=== PATIENT | male | born 1980 | race Caucasian/White ===

== ENCOUNTER → 2020-12-27 14:00 | Outpatient (BNVA) | payer OTHER, SELFPAY | PROVIDERS: PCP Internal Medicine Sports Medicine; Visit Provider Internal Medicine Cardiovascular Disease | DX: I42.7 Cardiomyopathy due to drug and external agent (principal); F14.11 Cocaine abuse, in remission; I10 Essential (primary) hypertension; Z79.899 Other long term (current) drug therapy | CPT/HCPCS: 93005; 99212 ==

== ENCOUNTER → 2021-02-12 14:00 | Outpatient (REF) | payer OTHER, SELFPAY ==
--- NOTE | 2021-02-12 14:02 | CA_ITS ---
Transthoracic Echocardiogram Patient (Last, First, Middle): João Walker A Gender: Male Date of : 1980 Age: 40 Procedure Date: 02/12/2021 Procedure Type: Transthoracic Echocardiogram Location: OP Height: 180.34 cm Weight: 115.67 kg BSA: 2.34 m2 Heart Rate: bpm BP: 142 / 79 mmHg Cable Repairer: SUGAR Referring MD: Lan Webb MD Symptoms: I42.8 - Other cardiomyopathies Study Quality: Good ECG Rhythm: Sinus Conclusions: - The left ventricular systolic function is moderately decreased. The visually estimated ejection fraction is between 30-35%. - No obvious valvular pathology seen on this study. - There is mild dilatation of the ascending aorta measuring 3.80 cm. Findings Left Ventricle Normal left ventricular cavity size. There is mildly increased left ventricular wall thickness. The left ventricular systolic function is moderately decreased. The visually estimated ejection fraction is between 30 35%. There is moderate global hypokinesis. Evidence suggests grade I (mild) diastolic dysfunction. Right Ventricle Normal right ventricular cavity size and systolic function. Atria Both atria are normal in size. Aortic Valve There is a normal trileaflet aortic valve. There is no aortic valve stenosis. There is no aortic valve regurgitation. Mitral Valve The mitral valve appears normal. There is trace mitral valve regurgitation. There is no mitral valve stenosis. Pulmonic Valve The pulmonic valve was not well visualized. Tricuspid Valve Normal tricuspid valve structure. There is trace tricuspid valve regurgitation. The pulmonary artery systolic pressure is normal. Great Vessels The aortic arch is normal in size. There is mild dilatation of the ascending aorta measuring 3.80 cm. Venous The inferior vena cava is normal in size and collapses greater than 50% with inspiration. Pericardium/Pleural There is no evidence of pericardial effusion. Prior Study Comparison No significant change compared to prior study dated: 07/13/2019. Recommendations, Care & Conclusions No obvious valvular pathology seen on this study. Measurements M-Mode Liner Measurements Normals - Women/Men AOV Cusps: 2.40 1.5-2.6 cm/m2 2D Linear Measurements IVSd: 1.29 0.6-0.9/0.6-1.0 cm LVIDd: 4.66 3.9-5.3/4.2-5.9 cm LVIDd Index: 1.99 2.4-3.2/2.2-3.1 cm/m2 LVIDs: 3.73 2.0-3.6 cm LVPWd: 1.26 0.7-1.1 cm Ao Root: 4.20 2.1-3.5 cm LA Diam: 4.00 2.7-3.8/3.0-4.0 cm LAIDs Index: 1.71 1.5-2.3 cm/m2 LV Mass: 284.56 67-162/88-224 g LV Mass Index: 121.60 43-95/49-115 g/m2 LVOT Diam: 2.80 3.0+(-)1.3 cm 2D Systolic Function EF 4C: 43.60 >55% EF 2C: 35.90 >55% Mitral Valve MV Pk E: 0.54 MV PK A: 0.97 MV Decel Time: 199.00 E/A: 0.60 E'Lateral: 8.49 E'Medial: 8.59 E/E' Med: 6.33 E/E' Lat: 6.41 PHT: 59.00 MVA PHT: 3.73 Decel [place]: 2.74 Aortic Valve AoV Pk Ancelmo: 1.33 AoV Pk Grad: 7.00 LVOT LVOT Pk Ancelmo: 0.83 LVOT Mn Ancelmo: 0.53 LVOT VTI: 0.14 LVOT Pk Grad: 3.00 LVOT Mn Grad: 1.00 LVOT Diam: 2.80 LVOT Area: 6.16 Diastolic Function MV Pk E: 0.54 MV Pk A: 0.97 E/A: 0.60 E'Medial: 8.59 E/E' Med: 6.33 E' Laterial: 8.49 E/E' Lat: 6.41 Tricuspid Valve RA Press: 3.00 Great Vessels Aorta Ao Root-2D: 4.20 2.0-3.7 cm Ao Asc: 3.80 2.1-3.4 cm Ao Arch: 2.70 Pulmonary Valve PV Pk Ancelmo: 0.98 Peak PV Grad: 4.00 Updated in Other Vendor System with Status of Final Reed Shay MD electronically signed on 02/13/2021 11:59:45 AM with status of Final
== END ==
LOC: HO.CARD 14:00
PROVIDERS: Visit Provider Internal Medicine Cardiovascular Disease
DX: I42.8 Other cardiomyopathies (principal)
CPT/HCPCS: 93306

== ENCOUNTER → 2021-05-02 12:50 | Outpatient (BNVA) | payer OTHER, SELFPAY | PROVIDERS: PCP Internal Medicine Sports Medicine; Visit Provider Internal Medicine Cardiovascular Disease | DX: I42.8 Other cardiomyopathies (principal); I10 Essential (primary) hypertension; Z79.899 Other long term (current) drug therapy | CPT/HCPCS: 99212 ==

== ENCOUNTER → 2021-09-05 12:40 | Outpatient (BNVA) | payer OTHER, SELFPAY | PROVIDERS: PCP Internal Medicine Sports Medicine; Referring Provider Internal Medicine; Visit Provider Internal Medicine Cardiovascular Disease | DX: I42.8 Other cardiomyopathies (principal); I10 Essential (primary) hypertension | CPT/HCPCS: 99212 ==

== ENCOUNTER 2021-09-18 12:33 | Inpatient (IN) | payer OTHER, SELFPAY ==
[2021-09-18] VITALS (12 sets, daily range): BP systolic 103–138; BP diastolic 50–91; PULSE 75–126; RESP 15–20; TEMP 36.7–37.1; O2SAT 96–98; BMI 34.2
--- NOTE | 2021-09-18 | ECG_ITS ---
Test Reason : CHEST PAIN Blood Pressure : / mmHG Vent. Rate : 110 BPM Atrial Rate : 000 BPM P-R Int : 000 ms QRS Dur : 102 ms QT Int : 262 ms P-R-T Axes : 000 -13 099 degrees QTc Int : 354 ms Atrial fibrillation with rapid ventricular response Nonspecific T wave abnormality Abnormal ECG Atrial fibrillation has replaced Sinus tachycardia Referred By: Generic ED Physician Electronically Signed By:JEANNIE ANDRADE MD
--- NOTE | ~2021-09-18 | XR_ITS ---
EXAMINATION: XR CHEST CLINICAL INFORMATION: Chest pain COMPARISON: Previous chest x-ray most recent February 2019 TECHNIQUE: Frontal view of the chest was obtained. FINDINGS: The cardiac and mediastinal contours are stable. The lungs are clear. There is no pleural effusion or pneumothorax. Bony structures are unremarkable. XR/XR chest 1V IMPRESSION: No evidence for acute disease in the chest.
--- NOTE | ~2021-09-18 | CT_ITS ---
EXAMINATION: CT HEAD WITHOUT CONTRAST CLINICAL INFORMATION: Left-sided weakness. COMPARISON: None TECHNIQUE: Contiguous axial imaging was performed from the skull base to vertex without intravenous administration of contrast. This CT examination was performed using dose optimization techniques as appropriate, variously including the following: *Automated exposure control *Adjustment of mA and/or kV according to patient size (this includes techniques or standardized protocols for targeted exams where dose is matched to indication/reason for exam; i.e. extremities or head) *Use of iterative reconstruction technique DLP: 876 mGy-cm FINDINGS: There is no evidence of acute intracranial hemorrhage or territorial infarction. No abnormal mass effect or midline shift is seen. [place] to white matter differentiation is well preserved. No extra-axial fluid collections are identified. The ventricles are normal in size. There is no abnormal attenuation within the brain parenchyma. The osseous structures and soft tissues are normal. The mastoid air cells and visualized portions of the paranasal sinuses are well aerated. CT/CT head/brain wo con IMPRESSION: No acute intracranial pathology.
[2021-09-18 13:15] LABS: MANUAL DIFF FLAG NO
[2021-09-18 13:20] LABS: Basophils Absolute Auto 0.1 X10*3/uL (0.0-0.2); Basophils Percent Auto 0.3 % (0-2); Eosinophils Absolute Auto 0.6 X10*3/uL (0.0-0.4); Eosinophils Percent Auto 3.7 % (0-4); Hematocrit 52.5 % (42-52); Imm Gran Abs Auto 0.08 X10*3/uL (0.00-0.03); Imm Gran Pct Auto 0.5 % (0.0-0.4); Lymphocytes Absolute Auto 1.6 X10*3/uL (1.2-4.9); Lymphocytes Percent Auto 9.3 % (20-40); Mean Corpuscular HGB Conc 34.3 g/dl (31.0-36.0); Mean Corpuscular Hemoglobin 29.3 pg (27.0-33.0); Mean Corpuscular Volume 85.4 fL (80-98); Mean Platelet Volume 9.2 fL (9.4-12.4); Monocytes Absolute Auto 1.2 X10*3/uL (0.1-1.2); Neutrophils Absolute Auto 13.6 X10*3/uL (2.0-8.3); Neutrophils Percent Auto 79.2 % (45-73); Platelet Count 380 X10*3/uL (160-400); Red Blood Count 6.15 X10*6/uL (4.60-5.80); Red Cell Distribution Width 14.7 % (11.0-16.0); White Blood Count 17.2 X10*3/uL (4.8-10.8)
--- NOTE | 2021-09-18 13:25 | PC.NURSE ---
pt alert and oriented, skin appropriate for ethnicity, respirations even and unlabored, pt reports last night waking up to use the bathroom and felt sob and weird tightness in his throat, felt his heart beating in his throat according to the pt, a-fib on the monitor no hx of a-fib but has hx of chf hr ranges from 109-140, denies chest pain/sob at this time
[2021-09-18 13:29] LABS: Anion Gap 11 (12-20); Blood Urea Nitrogen 11 mg/dL (9-16); Calcium 8.8 mg/dL (8.4-10.2); Carbon Dioxide 23 mmol/L (22-29); Chloride 107 mmol/L (96-108); Creatinine Clr Calc Pharmacy 124.4; Estimated Glomerular Filt Rate > 60; Glucose Random 155 mg/dL (60-115); Potassium 4.4 mmol/L (3.3-5.1); Sodium 137 mmol/L (135-145)
[2021-09-18 13:35] LABS: Troponin-I High Sensitivity 13.2 ng/L (<3.5-35.0)
--- NOTE | 2021-09-18 13:42 | ED_ITS ---
HPI - Chest Pain General Chief Complaint: Chest Pain Stated Complaint: Chest pressure Time Seen by Provider: 09/18/21 13:22 Source: patient Mode of arrival: ambulatory Limitations: no limitations History of Present Illness HPI narrative: 41-year-old male past medical history significant for nonischemic cardiomyopathy, hypertension, hyperlipidemia, CHF (w/ reduced EF) diabetes presents to the emergency department with complaints of shortness of breath, palpitations, and chest pain which has been intermittent since 3:00 a.m. he states the palpitations, and chest pain have improved since then, but the shortness of breath has remained constant. Patient also mentions that last week get an episode of left-sided weakness, numbness and tingling to his left upper extremity, left lower extremity. He states on this happened he dropped an object that he was holding in his left hand. He also states that he was unable to recognize people around him, and cell very altered and confused. Upon further questioning patient admits to frequent cocaine use, and states that he is frequently per felt palpitations when he uses cocaine. He also mentions that he uses testosterone, for body building, his last testosterone shot was yesterday. He denies fevers, chills, nausea, vomiting, abdominal pain, weakness. Related Data Home Medications Medication Instructions Recorded Confirmed amlodipine 10 mg tablet 10 mg PO DAILY 12/27/20 09/18/21 atorvastatin 20 mg tablet 20 mg PO DAILY 12/27/20 09/18/21 ibuprofen 800 mg tablet 800 mg PO Q8H PRN 12/27/20 09/18/21 insulin glargine 100 unit/mL (3 10 unit SUBCUT QPM 12/27/20 09/18/21 mL) subcutaneous pen (Lantus Solostar U-100 Insulin) metformin 500 mg tablet 1,000 mg PO DAILY tab 12/27/20 09/18/21 metoprolol succinate 25 mg 25 mg PO DAILY 12/27/20 09/18/21 tablet,extended release 24 hr dulaglutide 3 mg/0.5 mL 3 mg SUBCUT QWEEK 09/05/21 09/18/21 subcutaneous pen injector (Trulicity) Previous Rx's Medication Instructions Recorded sacubitril 24 mg-valsartan 26 mg 1 tab PO BID #60 tab 09/11/21 tablet (Entresto) Allergies Allergy/AdvReac Type Severity Reaction Status Date / Time diphenhydramine Allergy Unknown UNKNOWN Verified 09/18/21 12:46 [From [facility]NADRYL] [facility] Past Medical History Surgical History History of cardiac cath History of hip surgery Family History Family History Mother HIV (human immunodeficiency virus infection) Liver cirrhosis Father H/O heart artery stent Heart disease Social History Social History Alcohol intake: current Alcohol intake frequency: holidays/special occasions only Patient Tobacco Use Status: Never used Tobacco Use of substances other than those prescribed or required for medical reasons: Yes Substance Use Type: Marijuana Substance Use Frequency: Daily Advance Directives: No Advance Directives Information Provided: No Physical Exam Vital Signs: Vital Signs: Last Vital Signs Temp 98.0 F 09/18/21 12:46 Pulse 115 H 09/18/21 14:32 Resp 18 09/18/21 14:32 BP 103/77 09/18/21 14:32 Pulse Ox 96 09/18/21 14:32 Body Mass Index 34.2 Course Reevaluation(s) Reevaluation #1: EKG shows new onset atrial fibrillation with rapid ventricular response. Interventricular rate of 110. White blood cell count is noted to be elevated 17.2, likely secondary to steroid use for body building. Patient denies fevers, chills malaise at home not likely from infection. High sensitivity troponin #[address] an UA is pending at this time. TT to Dr. Webb who patient has seen in the past. Time: 13:51 Reevaluation #2: Spoke to Dr. Webb flu suggest starting the patient on digoxin 250 mcg x 2. He also advised starting anticoagulation either heparin, or Lovenox. He also agrees with the plan to scan the patient's head and brain. This patient will continue to be monitored, and when all tests are back, hospitalist will be reached out to for admission. I have spoken to the patient about the diagnosis, treatment plan, and have educated him on the benefits and potential risks of anticoagulation. Patient is understanding, and has no furth er questions at this time. Patient was educated with his significant other at the bedside, significant other had no other questions either. Time: 14:07 Reevaluation #3: CT of the head/brain shows no acute findings. BNP 40. TSH normal. Second troponin pending. Lovenox common digoxin has been given. Second Trop pending. Will reach out to the hospitalist for admission. MDM - Chest Pain MDM Narrative Medical decision making narrative: 41-year-old male past medical history significant for nonischemic cardiomyopathy, diabetes, hyperlipidemia, CHF, hypertension presents emergency department with complaints of chest pain, s hortness of breath and palpitations since 3:00 a.m. this morning. Palpitations and shortness of breath has been improving since 3:00 a.m., however shortness of breath has been constant since then. He also mentions last week get an episode of left-sided weakness, numbness and tingling, which caused him to drop in objects from his left hand. He admits to cocaine use frequently. Last use last night. He also states he is using IM testosterone, for body building. He is not on blood thinners. Upon physical examination a rapid a regular rhythm is appreciated. There are no focal neuro deficits. Regular strength upper and lower extremities. Lungs are clear to auscultation bilaterally. Abdomen soft nontender nondistended. Plan at this time is to obtain basic labs, troponin, chest x-ray, COVID, TSH, BNP, drug screen, EKG Lab Data Attestation: I reviewed the patient's lab results. Result diagrams: 09/18/21 13:10 09/18/21 13:10 Labs: Lab Results 09/18/21 09/18/21 09/18/21 Range/Units 13:10 13:10 13:10 WBC 17.2 H (4.8-10.8) X10*3/uL RBC 6.15 H (4.60-5.80) X10*6/uL Hgb 18.0 (14.0-18.0) g/dl Hct 52.5 H (42-52) % MCV 85.4 (80-98) fL MCH 29.3 (27.0-33.0) pg MCHC 34.3 (31.0-36.0) g/dl RDW 14.7 (11.0-16.0) % Plt Count 380 (160-400) X10*3/uL MPV 9.2 L (9.4-12.4) fL Immature Gran % (Auto) 0.5 H (0.0-0.4) % Neut % (Auto) 79.2 H (45-73) % Lymph % (Auto) 9.3 L (20-40) % [place] % (Auto) 7.0 (2-11) % Eos % (Auto) 3.7 (0-4) % Baso % (Auto) 0.3 (0-2) % Lymph # (Auto) 1.6 (1.2-4.9) X10*3/uL [place] # (Auto) 1.2 (0.1-1.2) X10*3/uL Eos # (Auto) 0.6 H (0.0-0.4) X10*3/uL Baso # (Auto) 0.1 (0.0-0.2) X10*3/uL Abs Immat Gran (auto) 0.08 H (0.00-0.03) X10*3/uL Absolute Neuts (auto) 13.6 H (2.0-8.3) X10*3/uL Absolute Nucleated RBC 0.000 (0.0-0.012) X10*3/uL Nucleated RBC % (auto) 0.0 (0.0-0.2) /100WBC PT (9.9-13.0) SEC INR (0.9-1.1) APTT (24.1-38.0) SEC Sodium 137 (135-145) mmol/L Potassium 4.4 (3.3-5.1) mmol/L Chloride 107 (96-108) mmol/L Carbon Dioxide 23 (22-29) mmol/L Anion Gap 11 L (12-20) BUN 11 (9-16) mg/dL Creatinine 1.01 (0.5-1.4) mg/dL Estim Creat Clear Calc 124.4 Estimated GFR > 60 Random Glucose 155 H (60-115) mg/dL Calcium 8.8 (8.4-10.2) mg/dL Troponin I High Sens 13.2 (<3.5-35.0) ng/L B-Natriuretic Peptide 40 (<100) pg/mL TSH 0.99 (0.32-4.0) uIU/mL COVID-19 ([facility]) (Negative) COVID-19 Clin Com 09/18/21 09/18/21 Range/Units 14:42 14:42 WBC (4.8-10.8) X10*3/uL RBC (4.60-5.80) X10*6/uL Hgb (14.0-18.0) g/dl Hct (42-52) % MCV (80-98) fL MCH (27.0-33.0) pg MCHC (31.0-36.0) g/dl RDW (11.0-16.0) % Plt Count (160-400) X10*3/uL MPV (9.4-12.4) fL Immature Gran % (Auto) (0.0-0.4) % Neut % (Auto) (45-73) % Lymph % (Auto) (20-40) % [place] % (Auto) (2-11) % Eos % (Auto) (0-4) % Baso % (Auto) (0-2) % Lymph # (Auto) (1.2-4.9) X10*3/uL [place] # (Auto) (0.1-1.2) X10*3/uL Eos # (Auto) (0.0-0.4) X10*3/uL Baso # (Auto) (0.0-0.2) X10*3/uL Abs Immat Gran (auto) (0.00-0.03) X10*3/uL Absolute Neuts (auto) (2.0-8.3) X10*3/uL Absolute Nucleated RBC (0.0-0.012) X10*3/uL Nucleated RBC % (auto) (0.0-0.2) /100WBC PT 13.0 (9.9-13.0) SEC INR 1.1 (0.9-1.1) APTT 35.2 (24.1-38.0) SEC Sodium (135-145) mmol/L Potassium (3.3-5.1) mmol/L Chloride (96-108) mmol/L Carbon Dioxide (22-29) mmol/L Anion Gap (12-20) BUN (9-16) mg/dL Creatinine (0.5-1.4) mg/dL Estim Creat Clear Calc Estimated GFR Random Glucose (60-115) mg/dL Calcium (8.4-10.2) mg/dL Troponin I High Sens (<3.5-35.0) ng/L B-Natriuretic Peptide (<100) pg/mL TSH (0.32-4.0) uIU/mL COVID-19 ([facility]) Negative (Negative) COVID-19 Clin Com See Note Imaging Data CT scan - head: Attestation: I personally reviewed and interpreted this imaging study as follows: Radiologist's impression: FINDINGS: There is no evidence of acute intracranial hemorrhage or territorial infarction. No abnormal mass effect or midline shift is seen. [place] to white matter differentiation is well preserved. No extra-axial fluid collections are identified. The ventricles are normal in size. There is no abnormal attenuation within the brain parenchyma. The osseous structures and soft tissues are normal. The mastoid air cells and visualized portions of the paranasal sinuses are well aerated. ? CT/CT head/brain wo con IMPRESSION: No acute intracranial pathology. ECG Data ECG #1: ECG interpretation date: 09/18/21 ECG interpretation time: 13:54 Prior ECG tracings: available for review Interpretation: Ventricular rate of 110, QRS prolonged to 102, QT/QTC normal. EKG shows atrial fibrillation with rapid ventricular response. No ST elevation, no T-wave inversions no acute ischemia. EKG also shows poor R-wave progression. Acute changes when compared to EKG from January 04, 2021, and December 27, 2020. Discharge Plan Discharge Clinical Impression: Atrial fibrillation, Chest pain, Shortness of breath Patient Disposition: Admitted As Inpatient Prescriptions: No Action Entresto 24-26 mg tablet 1 tab PO BID Qty: 60 RF: 5 Trulicity 3 mg/0.5 mL pen injector 3 mg subcut QWEEK RF: 0 amlodipine 10 mg tablet 10 mg PO DAILY RF: 0 metoprolol succinate 25 mg tablet extended release 24 hr 25 mg PO DAILY RF: 0 ibuprofen 800 mg tablet 800 mg PO Q8H PRN (Reason: pain) RF: 0 atorvastatin 20 mg tablet 20 mg PO DAILY RF: 0 Lantus Solostar U-100 Insulin 100 unit/mL (3 mL) insulin pen 10 unit subcut QPM RF: 0 metformin 500 mg tablet 1,000 mg PO DAILY RF: 0
[2021-09-18 14:04] LABS: B Type Natriuretic Peptide 40 pg/mL (<100)
[2021-09-18 14:19] LABS: TSH reflex Free T4 0.99 uIU/mL (0.32-4.0)
--- NOTE | 2021-09-18 14:20 | PHA.MEDREC ---
Pharmacy Consult ? Medication Reconciliation Pharmacy has completed the medication reconciliation.
[2021-09-18] MEDS: Digoxin 0.5 MG/2 ML AMPUL 0.25 MG IVPUSH ×2 (14:31→18:20)
[2021-09-18 14:53] LABS: INTERNATIONAL NORM RATIO 1.1 (0.9-1.1)
[2021-09-18 14:55] LABS: Partial Thromboplastin Time 35.2 SEC (24.1-38.0)
[2021-09-18 15:05] LABS: COVID-19 Test Negative (Negative)
[2021-09-18] MEDS: Enoxaparin Sodium 120 MG/0.8 ML SYRINGE 110 MG SUBCUT (15:05)
[2021-09-18 15:56] LABS: Amphetamine Screen Urine Not Detected (Not Detect); Barbiturates, Urine Not Detected (Not Detect); Benzodiazepines Screen Urine Not Detected (Not Detect); Cannabinoid Screen Urine POSITIVE (Not Detect); Cocaine Screen Urine POSITIVE (Not Detect); Fentanyl, urine Not Detected (Not Detect); Opiate Screen Urine Not Detected (Not Detect); Phencyclidine Screen Urine Not Detected (Not Detect)
[2021-09-18 16:02] LABS: Troponin-I High Sensitivity 13.9 ng/L (<3.5-35.0)
--- NOTE | 2021-09-18 16:40 | P.HPHOSP_ITS ---
History of Present Illness Date of Service: 09/18/21 <Jessica Hurtado NP - Last Filed: 09/18/21 17:53> Attending physician on admission: Julio Webb <Jessica Hurtado NP - Last Filed: 09/18/21 17:53> Chief Complaint: Shortness of breath <Jessica Hurtado NP - Last Filed: 09/18/21 17:53> 41-year-old male presenting with shortness of breath, palpitations, and chest pain which has been intermittent since 0300 with continued shortness of breath. He uses cocaine frequently and admitted that he gets palpitations with use. He also uses testosterone for body building. He gets palpitations off and on and this has been happening for some time now. He denied chest pain, nausea, vomiting. He was noted to have an elevated white blood cell count of 17.2. Head CT and chest x-ray negative for any acute abnormality. His blood pressure has remained stable. In the ER, he was given therapeutic Lovenox and digoxin. He will be admitted for further management and treatment of acute onset atrial fibrillation with rapid ventricular response <Jessica Hurtado NP - Last Filed: 09/18/21 17:53> Review of Systems Review of Systems: Denies any recent fever chills or decrease in appetite respiratory denies any shortness of breath coverage production cardiovascular denies chest pain gastrointestinal denies any dysphagia abdominal pain nausea vomiting or diarrhea genitourinary denies any dysuria frequency or hematuria musculoskeletal denies any joint pain or swelling neuropsych denies any weakness or seizures all other systems reviewed are negative <Jessica Hurtado NP - Last Filed: 09/18/21 17:53> [facility] Medical History: Medical History Hypertension NICM (nonischemic cardiomyopathy) <Jessica Hurtado NP - Last Filed: 09/18/21 17:53> Family History: Family History Mother HIV (human immunodeficiency virus infection) Liver cirrhosis Father H/O heart artery stent Heart disease <Jessica Hurtado NP - Last Filed: 09/18/21 17:53> Pertinent family history: . <Jessica Hurtado NP - Last Filed: 09/18/21 17:53> Surgical History: Surgical History History of cardiac cath History of hip surgery <Jessica Hurtado NP - Last Filed: 09/18/21 17:53> Social History: Social History Household Members: Spouse and Children Housing: House Do you presently have visiting nurse or other home services: No Alcohol intake: current Alcohol intake frequency: holidays/special occasions only Patient Tobacco Use Status: Never used Tobacco Substance Use Type: Crack/Cocaine and Marijuana service: No Current occupational status: employed <Jessica Hurtado NP - Last Filed: 09/18/21 17:53> Meds Allergies/Adverse reactions: Allergies Allergy/AdvReac Type Severity Reaction Status Date / Time diphenhydramine Allergy Unknown UNKNOWN Verified 09/18/21 12:46 [From BENADRYL] <Jessica Hurtado NP - Last Filed: 09/18/21 17:53> Active Medications: Current Medications Acetaminophen (Acetaminophen 325 Mg Tablet) 650 mg PO Q6H PRN PRN Reason: Pain, Mild (Pain Scale 1-3) Enoxaparin Sodium (Enoxaparin Sodium 120 Mg/0.8 Ml Syringe) 110 mg SUBCUT BID ANN Ondansetron HCl (Ondansetron Hcl 4 Mg/2 Ml Vial) 4 mg IVPUSH Q8H PRN PRN Reason: Nausea and Vomiting Pharmacy Consult (Consult Rx Perform Med Rec) 1 each MISCELLANE ONCE PRN PRN Reason: Consult order Sodium Chloride (0.9 % Sodium Chloride Flush 3 Ml Syringe) 3 ml IVFLUSH QSHIFT ANN <Jessica Hurtado NP - Last Filed: 09/18/21 17:53> Home medications: Home Medications Medication Instructions Recorded Confirmed Last Taken Type amlodipine 10 mg tablet 10 mg PO DAILY 12/27/20 09/18/21 Unknown History atorvastatin 20 mg tablet 20 mg PO DAILY 12/27/20 09/18/21 Unknown History ibuprofen 800 mg tablet 800 mg PO Q8H PRN 12/27/20 09/18/21 Unknown History insulin glargine 100 unit/mL (3 10 unit SUBCUT QPM 12/27/20 09/18/21 Unknown History mL) subcutaneous pen (Lantus Solostar U-100 Insulin) metformin 500 mg tablet 1,000 mg PO DAILY tab 12/27/20 09/18/21 Unknown History metoprolol succinate 25 mg 25 mg PO DAILY 12/27/20 09/18/21 Unknown History tablet,extended release 24 hr dulaglutide 3 mg/0.5 mL 3 mg SUBCUT QWEEK 09/05/21 09/18/21 Unknown History subcutaneous pen injector (Trulicity) <Jessica Hurtado NP - Last Filed: 09/18/21 17:53> Physical Exam Vital Signs and Narrative: Vital Signs: Last Vital Signs Temp 98.0 F 09/18/21 12:46 Pulse 126 H 09/18/21 16:01 Resp 20 09/18/21 16:01 BP 106/77 09/18/21 16:01 Pulse Ox 96 09/18/21 14:32 Body Mass Index 34.2 <Jessica Hurtado NP - Last Filed: 09/18/21 17:53> Appearing in no acute distress head is normocephalic atraumatic eyes pupils are PERRLA sclera is anicteric mouth throat mucous membranes are intact and moist neck is supple no lymphadenopathy, no JVD noted lung sounds are clear to auscultation heart regular rate rhythm, clear S1, S2 positive bowel sounds, abdomen is soft, nontender neuro patient is alert x3, no focal deficits <Jessica Hurtado NP - Last Filed: 09/18/21 17:53> Results Labs CBC and Chem 7: : 09/19/21 06:45 09/19/21 06:45 <Jessica Hurtado NP - Last Filed: 09/18/21 17:53> Labs: Laboratory Results - last 24 hr 09/18/21 09/18/21 09/18/21 13:10 13:10 13:10 MCV 85.4 MCH 29.3 MCHC 34.3 RDW 14.7 Plt Count 380 MPV 9.2 L Immature Gran % (Auto) 0.5 H Neut % (Auto) 79.2 H Lymph % (Auto) 9.3 L [place] % (Auto) 7.0 Eos % (Auto) 3.7 Baso % (Auto) 0.3 Lymph # (Auto) 1.6 [place] # (Auto) 1.2 Eos # (Auto) 0.6 H Baso # (Auto) 0.1 Abs Immat Gran (auto) 0.08 H Absolute Neuts (auto) 13.6 H Absolute Nucleated RBC 0.000 Nucleated RBC % (auto) 0.0 PT INR APTT Anion Gap 11 L Estim Creat Clear Calc 124.4 Estimated GFR > 60 Random Glucose 155 H Calcium 8.8 Troponin I High Sens 13.2 B-Natriuretic Peptide 40 TSH 0.99 Urine Opiates Screen Urine Fentanyl Screen Ur Barbiturates Screen Ur Phencyclidine Scrn Ur Amphetamines Screen U Benzodiazepines Scrn Urine Cocaine Screen U Marijuana (THC) Screen COVID-19 ([facility]) COVID-19 Clin Com 09/18/21 09/18/21 09/18/21 14:42 14:42 15:32 MCV MCH MCHC RDW Plt Count MPV Immature Gran % (Auto) Neut % (Auto) Lymph % (Auto) [place] % (Auto) Eos % (Auto) Baso % (Auto) Lymph # (Auto) [place] # (Auto) Eos # (Auto) Baso # (Auto) Abs Immat Gran (auto) Absolute Neuts (auto) Absolute Nucleated RBC Nucleated RBC % (auto) PT 13.0 INR 1.1 APTT 35.2 Anion Gap Estim Creat Clear Calc Estimated GFR Random Glucose Calcium Troponin I High Sens 13.9 B-Natriuretic Peptide TSH Urine Opiates Screen Urine Fentanyl Screen Ur Barbiturates Screen Ur Phencyclidine Scrn Ur Amphetamines Screen U Benzodiazepines Scrn Urine Cocaine Screen U Marijuana (THC) Screen COVID-19 (CHOCO) Negative COVID-Ge.tt Clin Com See Note 09/18/21 15:32 MCV MCH MCHC RDW Plt Count MPV Immature Gran % (Auto) Neut % (Auto) Lymph % (Auto) [place] % (Auto) Eos % (Auto) Baso % (Auto) Lymph # (Auto) [place] # (Auto) Eos # (Auto) Baso # (Auto) Abs Immat Gran (auto) Absolute Neuts (auto) Absolute Nucleated RBC Nucleated RBC % (auto) PT INR APTT Anion Gap Estim Creat Clear Calc Estimated GFR Random Glucose Calcium Troponin I High Sens B-Natriuretic Peptide TSH Urine Opiates Screen Not Detected Urine Fentanyl Screen Not Detected Ur Barbiturates Screen Not Detected Ur Phencyclidine Scrn Not Detected Ur Amphetamines Screen Not Detected U Benzodiazepines Scrn Not Detected Urine Cocaine Screen POSITIVE H U Marijuana (THC) Screen POSITIVE H COVID-19 (CHOCO) COVID-19 Clin Com <Jessica Hurtado NP - Last Filed: 09/18/21 17:53> Imaging Radiologist's Impressions: Impressions Chest X-Ray 09/18/21 13:04 IMPRESSION: No evidence for acute disease in the chest. Head CT 09/18/21 13:34 IMPRESSION: No acute intracranial pathology. <Jessica Hurtado NP - Last Filed: 09/18/21 17:53> Assessment and Plan (1) NICM (nonischemic cardiomyopathy): Status: Inactive <Jessica Hurtado NP - Last Filed: 09/18/21 17:53> (2) Hypertension: Status: Inactive <Jessica Hurtado NP - Last Filed: 09/18/21 17:53> (3) Atrial fibrillation: Qualifiers: Atrial fibrillation type: unspecified Qualified Code(s): I48.91 - Unspecified atrial fibrillation <Jessica Hurtado NP - Last Filed: 09/18/21 17:53> Status: Acute <Jessica Hurtado NP - Last Filed: 09/18/21 17:53> (4) Non-ischemic cardiomyopathy: Status: Acute <Jessica Hurtado NP - Last Filed: 09/18/21 17:53> (5) Diabetes mellitus: Status: Acute <Jessica Hurtado NP - Last Filed: 09/18/21 17:53> (6) H/O: HTN (hypertension): Status: Acute <Jessica Hurtado NP - Last Filed: 09/18/21 17:53> 41 year old man admitted with afib rvr, new onset. Hx of NICMP Afib rvr new onset Likely secondary to cocaine and steroid use. Therapeutic lovenox for now cardiology to follow telemetry on metoprolol, received dig in the ED Hx of Non ischemic cardiomyopathy entresto Metoprolol statin Hypertension Continue amlodipine Diabetes sliding scale ada diet DVT prophylaxis with Lovenox Attending Dr. Webb <Jessica Hurtado NP - Last Filed: 09/18/21 17:53> 41 year old man admitted with afib rvr, new onset. Hx of NICMP Afib rvr new onset Likely secondary to cocaine and steroid use. Therapeutic lovenox for now cardiology to follow telemetry on metoprolol, received dig in the ED Hx of Non ischemic cardiomyopathy entresto Metoprolol statin Hypertension Continue amlodipine Diabetes sliding scale ada diet DVT prophylaxis with Lovenox Attending Dr. Webb ATTENDING ADDENDUM: I saw and evaluated the patient .? The case was discussed with midlevel provider . I personally reviewed the HPI, PH, FH, SH, ROS and medications. I repeated per tinent portions of the examination and reviewed the relevant imaging and laboratory data. I agree with the findings, assessment and plan as documented. At this time, based on her current clinical condition and treatment, I expect the patient to remain in the hospital [facility] 2 days, hold anticoagulation at this time. DOS 09/18/21. Vanessa Webb <Julio Webb MD - Last Filed: 09/21/21 16:57> Quality Stroke Does the patient have a stroke diagnosis?: No <Jessica Hurtado NP - Last Filed: 09/18/21 17:53> VTE Prior VTE?: No <Jessica Hurtado NP - Last Filed: 09/18/21 17:53> VTE Risk Level:: Medical - moderate - high <Jessica Hurtado NP - Last Filed: 09/18/21 17:53> VTE Device Contraindication: Treatment Not Indicated <Jessica Hurtado NP - Last Filed: 09/18/21 17:53> VTE Drug Contraindication: N/A - Med Ordered <Jessica Hurtdao NP - Last Filed: 09/18/21 17:53>
--- NOTE | 2021-09-18 17:10 | PC.NURSE ---
pt resting in the stretcher, respirations even and unlabored, a-fib on the monitor anywhere from 123-90's, denies chest pain/sob just that weird feeling in his throat pt awaiting room assignment
--- NOTE | 2021-09-18 18:29 | PC.NURSE ---
report given to imc rn
[2021-09-18 19:48] LABS: Glucose, Whole Blood 101 mg/dL (60-115)
[2021-09-18] MEDS: Sacubitril/Valsartan 24/26 1 TAB TABLET PO (20:17)
[2021-09-18] MEDS: 0.9 % Sodium Chloride Flush 3 ML SYRINGE IVFLUSH (20:17)
[2021-09-18] MEDS: Metoprolol Tartrate 5 MG/5 ML VIAL IVPUSH (20:18)
[2021-09-19 03:48] VITALS: BP 134/91; PULSE 88; RESP 20; TEMP 36.2; O2SAT 100
[2021-09-19] MEDS: Enoxaparin Sodium 120 MG/0.8 ML SYRINGE 110 MG SUBCUT (05:31)
[2021-09-19 07:01] LABS: MANUAL DIFF FLAG NO
[2021-09-19 07:15] LABS: Basophils Percent Auto 0.3 % (0-2); Eosinophils Absolute Auto 0.8 X10*3/uL (0.0-0.4); Eosinophils Percent Auto 6.1 % (0-4); Hematocrit 51.7 % (42-52); Imm Gran Abs Auto 0.07 X10*3/uL (0.00-0.03); Imm Gran Pct Auto 0.5 % (0.0-0.4); Lymphocytes Percent Auto 14.9 % (20-40); Mean Corpuscular HGB Conc 34.8 g/dl (31.0-36.0); Mean Corpuscular Hemoglobin 29.7 pg (27.0-33.0); Mean Corpuscular Volume 85.2 fL (80-98); Mean Platelet Volume 9.5 fL (9.4-12.4); Monocytes Absolute Auto 1.2 X10*3/uL (0.1-1.2); Neutrophils Absolute Auto 9.3 X10*3/uL (2.0-8.3); Neutrophils Percent Auto 69.2 % (45-73); Platelet Count 332 X10*3/uL (160-400); Red Blood Count 6.07 X10*6/uL (4.60-5.80); Red Cell Distribution Width 14.6 % (11.0-16.0); White Blood Count 13.5 X10*3/uL (4.8-10.8)
[2021-09-19 07:16] VITALS: BP 113/70; PULSE 96; RESP 20; TEMP 36.3; O2SAT 96
[2021-09-19 07:31] LABS: Anion Gap 11 (12-20); Blood Urea Nitrogen 7 mg/dL (9-16); Calcium 8.6 mg/dL (8.4-10.2); Carbon Dioxide 24 mmol/L (22-29); Chloride 107 mmol/L (96-108); Creatinine Clr Calc Pharmacy 144.5; Estimated Glomerular Filt Rate > 60; Glucose Random 97 mg/dL (60-115); Potassium 3.9 mmol/L (3.3-5.1); Sodium 138 mmol/L (135-145)
[2021-09-19 07:32] LABS: Glucose, Whole Blood 102 mg/dL (60-115)
[2021-09-19 08:34] VITALS: BP 113/70; PULSE 96
[2021-09-19] MEDS: metFORMIN HCl 1,000 MG TABLET 1000 MG PO (08:34)
[2021-09-19] MEDS: amLODIPine Besylate 10 MG TABLET PO (08:34)
[2021-09-19 08:35] VITALS: BP 113/70; PULSE 96
[2021-09-19] MEDS: Metoprolol Succinate ER 25 MG TAB.ER.24H PO (08:35)
[2021-09-19] MEDS: Atorvastatin Calcium 20 MG TABLET PO (08:35)
[2021-09-19] MEDS: Sacubitril/Valsartan 24/26 1 TAB TABLET PO (08:35)
[2021-09-19] MEDS: 0.9 % Sodium Chloride Flush 3 ML SYRINGE IVFLUSH (08:35)
--- NOTE | 2021-09-19 09:26 | PM.CNCAR ---
History of Present Illness History of Present Illness Date of Service: 09/19/21 Requesting physician: Gi Jeong Chief complaint: afib rvr new onset, cardiomyopathy Narrative: [age] gentleman with background history of nonischemic cardiomyopathy with ejection fraction 30 35%. Previously has severely reduced ejection fraction which was thought to be secondary to substance abuse including cocaine use and alcohol use. He improved to 30 35% and but did not improve further. He has cut back on his cocaine use but continues to use it unfortunately. Recently had any went very use cocaine and became confused and noticed left-sided weakness which was transient. He said again on the day of presentation he used cocaine and later developed some palpitations which he has been noticing before too. He said he also became short of breath. With these symptoms he presented to emergency department and was noticed to be in AFib with RVR. He was given digoxin in the ER and then admitted for further care. He also was treated with Lovenox for anticoagulation. It appears overnight he reverted back to sinus rhythm. He is saying he is back to normal and feeling good. [facility] Past Medical History Medical History Hypertension NICM (nonischemic cardiomyopathy) Family History Family History Mother HIV (human immunodeficiency virus infection) Liver cirrhosis Father H/O heart artery stent Heart disease Surgical History Surgical History History of cardiac cath History of hip surgery Social History Social History Household Members: Spouse and Children Housing: House Do you presently have visiting nurse or other home services: No Alcohol intake: current Alcohol intake frequency: holidays/special occasions only Patient Tobacco Use Status: Never used Tobacco Use of substances other than those prescribed or required for medical reasons: Yes Substance Use Type: Crack/Cocaine and Marijuana Substance Use Frequency: Daily Last Used Substance: Just Prior to Admission Currently Displaying Signs/Symptoms of Drug Intoxication Withdrawal: No Any prior treatment program specific to substance use: No Have you been hit, kicked, punched, or otherwise hurt by someone within the past year? If so, by whom?: No Do you feel safe in your current relationship?: No Is there a partner from a previous relationship who is making you feel unsafe now?: No Are you made to feel afraid or neglected: No Advance Directives: No Advance Directives Information Provided: No Do you have thoughts of harming others: None Do you have a plan to hurt others: No Plan Recently lost weight without trying: No Poor oral hygiene: No service: No Current occupational status: employed Meds Allergies Allergy/AdvReac Type Severity Reaction Status Date / Time diphenhydramine Allergy Unknown UNKNOWN Verified 09/18/21 12:46 [From BENADRYL] Active Medications: Current Medications Acetaminophen (Acetaminophen 325 Mg Tablet) 650 mg PO Q6H PRN PRN Reason: Pain, Mild (Pain Scale 1-3) Amlodipine Besylate (Amlodipine Besylate 10 Mg Tablet) 10 mg PO DAILY [facility]; Protocol Last Admin: 09/19/21 08:34 Dose: 10 mg Documented by: Atorvastatin Calcium (Atorvastatin Calcium 20 Mg Tablet) 20 mg PO DAILY [facility] Last Admin: 09/19/21 08:35 Dose: 20 mg Documented by: Dextrose (Dextrose 50 % 25 Gm/50 Ml Vial) 25 gm IVPUSH Q15M PRN; Protocol PRN Reason: per Hypoglycemia Standing Ord. Enoxaparin Sodium (Enoxaparin Sodium 120 Mg/0.8 Ml Syringe) 110 mg SUBCUT Q12H [facility] Last Admin: 09/19/21 05:31 Dose: 110 mg Documented by: Glucose (Glucose Gel 15 Gm Gel..Gram.) 15 gm PO Q15M PRN; Protocol PRN Reason: per Hypoglycemia Standing Ord. Insulin Glargine (Insulin Glargine,Hum.Rec.Anlog 100 Unit/Ml 10 Ml Vial) 10 unit SUBCUT BEDTIME [facility] Last Admin: 09/18/21 20:17 Dose: Not Given Documented by: Insulin Human Lispro (Insulin Lispro 100 Unit/Ml 3 Ml Vial) 0 unit SUBCUT QIDACHS [facility]; Protocol Last Admin: 09/19/21 08:25 Dose: Not Given Documented by: Metformin HCl (Metformin Hcl 1,000 Mg Tablet) 1,000 mg PO DAILY [facility] Last Admin: 09/19/21 08:34 Dose: 1,000 mg Documented by: Metoprolol Succinate (Metoprolol Succinate Er 25 Mg Tab.Er.24h) 25 mg PO DAILY [facility]; Protocol Last Admin: 09/19/21 08:35 Dose: 25 mg Documented by: Ondansetron HCl (Ondansetron Hcl 4 Mg/2 Ml Vial) 4 mg IVPUSH Q8H PRN PRN Reason: Nausea and Vomiting Pharmacy Consult (Consult Rx Perform Med Rec) 1 each MISCELLANE ONCE PRN PRN Reason: Consult order Sacubitril/Valsartan (Sacubitril/Valsartan 1 Tab Tablet) 1 tab PO BID [facility]; Protocol Last Admin: 09/19/21 08:35 Dose: 1 tab Documented by: Sodium Chloride (0.9 % Sodium Chloride Flush 3 Ml Syringe) 3 ml IVFLUSH QSHIFT [facility] Last Admin: 09/19/21 08:35 Dose: 3 ml Documented by: Home Medications Medication Instructions Recorded Confirmed Last Taken Type amlodipine 10 mg tablet 10 mg PO DAILY 12/27/20 09/18/21 Unknown History atorvastatin 20 mg tablet 20 mg PO DAILY 12/27/20 09/18/21 Unknown History ibuprofen 800 mg tablet 800 mg PO Q8H PRN 12/27/20 09/18/21 Unknown History insulin glargine 100 unit/mL (3 10 unit SUBCUT QPM 12/27/20 09/18/21 Unknown History mL) subcutaneous pen (Lantus Solostar U-100 Insulin) metformin 500 mg tablet 1,000 mg PO DAILY tab 12/27/20 09/18/21 Unknown History metoprolol succinate 25 mg 25 mg PO DAILY 12/27/20 09/18/21 Unknown History tablet,extended release 24 hr dulaglutide 3 mg/0.5 mL 3 mg SUBCUT QWEEK 09/05/21 09/18/21 Unknown History subcutaneous pen injector (Trulicity) Physical Exam Vital Signs: Vital Signs: Last Vital Signs Temp 97.3 F 09/19/21 07:16 Pulse 96 09/19/21 08:35 Resp 20 09/19/21 07:16 BP 113/70 09/19/21 08:35 Pulse Ox 96 09/19/21 07:16 Body Mass Index 34.2 GENERAL APPEARANCE: in no acute distress, well developed, well nourished. NECK/THYROID: no carotid bruit, no jugular venous distention. SKIN: no suspicious lesions, warm and dry. HEART: no murmurs, regular rate and rhythm, S1, S2 normal. LUNGS: clear to auscultation bilaterally. ABDOMEN: normal, bowel sounds present, soft, nontender, nondistended. EXTREMITIES: no clubbing, cyanosis, or edema. PERIPHERAL PULSES: equal. NEUROLOGIC: nonfocal, alert and oriented. PSYCH: mood/affect full range. Results Labs and Meds Result diagrams: 09/19/21 06:45 09/19/21 06:45 Lab results: Laboratory Results - last 24 hr 09/18/21 09/18/21 09/18/21 13:10 13:10 13:10 WBC 17.2 H RBC 6.15 H Hgb 18.0 Hct 52.5 H MCV 85.4 MCH 29.3 MCHC 34.3 RDW 14.7 Plt Count 380 MPV 9.2 L Immature Gran % (Auto) 0.5 H Neut % (Auto) 79.2 H Lymph % (Auto) 9.3 L [place] % (Auto) 7.0 Eos % (Auto) 3.7 Baso % (Auto) 0.3 Lymph # (Auto) 1.6 [place] # (Auto) 1.2 Eos # (Auto) 0.6 H Baso # (Auto) 0.1 Abs Immat Gran (auto) 0.08 H Absolute Neuts (auto) 13.6 H Absolute Nucleated RBC 0.000 Nucleated RBC % (auto) 0.0 PT INR APTT Sodium 137 Potassium 4.4 Chloride 107 Carbon Dioxide 23 Anion Gap 11 L BUN 11 Creatinine 1.01 Estim Creat Clear Calc 124.4 Estimated GFR > 60 POC Glucose Random Glucose 155 H Calcium 8.8 Troponin I High Sens 13.2 B-Natriuretic Peptide 40 TSH 0.99 Urine Opiates Screen Urine Fentanyl Screen Ur Barbiturates Screen Ur Phencyclidine Scrn Ur Amphetamines Screen U Benzodiazepines Scrn Urine Cocaine Screen U Marijuana (THC) Screen COVID-19 ([facility]) COVID-19 Clin Com 09/18/21 09/18/21 09/18/21 14:42 14:42 15:32 WBC RBC Hgb Hct MCV MCH MCHC RDW Plt Count MPV Immature Gran % (Auto) Neut % (Auto) Lymph % (Auto) [place] % (Auto) Eos % (Auto) Baso % (Auto) Lymph # (Auto) [place] # (Auto) Eos # (Auto) Baso # (Auto) Abs Immat Gran (auto) Absolute Neuts (auto) Absolute Nucleated RBC Nucleated RBC % (auto) PT 13.0 INR 1.1 APTT 35.2 Sodium Potassium Chloride Carbon Dioxide Anion Gap BUN Creatinine Estim Creat Clear Calc Estimated GFR POC Glucose Random Glucose Calcium Troponin I High Sens 13.9 B-Natriuretic Peptide TSH Urine Opiates Screen Urine Fentanyl Screen Ur Barbiturates Screen Ur Phencyclidine Scrn Ur Amphetamines Screen U Benzodiazepines Scrn Urine Cocaine Screen U Marijuana (THC) Screen COVID-19 ([facility]) Negative COVID-19 Clin Com See Note 09/18/21 09/18/21 09/19/21 15:32 19:45 06:45 WBC Cancelled RBC Cancelled Hgb Cancelled Hct Cancelled MCV Cancelled MCH Cancelled MCHC Cancelled RDW Cancelled Plt Count Cancelled MPV Cancelled Immature Gran % (Auto) Neut % (Auto) Lymph % (Auto) [place] % (Auto) Eos % (Auto) Baso % (Auto) Lymph # (Auto) [place] # (Auto) Eos # (Auto) Baso # (Auto) Abs Immat Gran (auto) Absolute Neuts (auto) Absolute Nucleated RBC Cancelled Nucleated RBC % (auto) Cancelled PT INR APTT Sodium Potassium Chloride Carbon Dioxide Anion Gap BUN Creatinine Estim Creat Clear Calc Estimated GFR POC Glucose 101 Random Glucose Calcium Troponin I High Sens B-Natriuretic Peptide TSH Urine Opiates Screen Not Detected Urine Fentanyl Screen Not Detected Ur Barbiturates Screen Not Detected Ur Phencyclidine Scrn Not Detected Ur Amphetamines Screen Not Detected U Benzodiazepines Scrn Not Detected Urine Cocaine Screen POSITIVE H U Marijuana (THC) Screen POSITIVE H COVID-19 ([facility]) COVID-19 Clin Com 09/19/21 09/19/21 09/19/21 06:45 06:45 07:15 WBC 13.5 H RBC 6.07 H Hgb 18.0 Hct 51.7 MCV 85.2 MCH 29.7 MCHC 34.8 RDW 14.6 Plt Count 332 MPV 9.5 Immature Gran % (Auto) 0.5 H Neut % (Auto) 69.2 Lymph % (Auto) 14.9 L [place] % (Auto) 9.0 Eos % (Auto) 6.1 H Baso % (Auto) 0.3 Lymph # (Auto) 2.0 [place] # (Auto) 1.2 Eos # (Auto) 0.8 H Baso # (Auto) 0.0 Abs Immat Gran (auto) 0.07 H Absolute Neuts (auto) 9.3 H Absolute Nucleated RBC 0.000 Nucleated RBC % (auto) 0.0 PT INR APTT Sodium 138 Potassium 3.9 Chloride 107 Carbon Dioxide 24 Anion Gap 11 L BUN 7 L Creatinine 0.87 Estim Creat Clear Calc 144.5 Estimated GFR > 60 POC Glucose 102 Random Glucose 97 D Calcium 8.6 Troponin I High Sens B-Natriuretic Peptide TSH Urine Opiates Screen Urine Fentanyl Screen Ur Barbiturates Screen Ur Phencyclidine Scrn Ur Amphetamines Screen U Benzodiazepines Scrn Urine Cocaine Screen U Marijuana (THC) Screen COVID-19 ([facility]) COVID-19 Clin Com Imaging Radiologist's impression: Impressions Chest X-Ray 09/18/21 13:04 IMPRESSION: No evidence for acute disease in the chest. Head CT 09/18/21 13:34 IMPRESSION: No acute intracranial pathology. Assessment and Plan (1) Non-ischemic cardiomyopathy: Status: Acute (2) Atrial fibrillation: Qualifiers: Atrial fibrillation type: unspecified Qualified Code(s): I48.91 - Unspecified atrial fibrillation Status: Acute 41-year-old gentleman with background of substance abuse and nonischemic cardiomyopathy with EF of 30-35%. He was on guideline directed medical therapy but continues to use cocaine and alcohol. Unfortunately use recently and developed palpitations and came to emergency department and noted to be in AFib with RVR. He has reverted back to sinus rhythm. Her chads Vasc score is high specially with recent left-sided transient weakness after using cocaine. This can be related to vasospasm but also could be related to atrial fibrillation and embolic event. In any case right now we discussed about anticoagulation which she is agreeable for. I again had a long discussion with him about stopping cocaine. In the metoprolol to carvedilol to get some alpha blockade which may help blood pressure in case he continues to use cocaine. Thank you for allowing me to participate in the care of your patient. Please feel free to contact me if you have any questions. Procedures Date of Service Date of Service: 09/19/21
--- NOTE | 2021-09-19 10:58 | P.CDIC_ITS ---
CDI Concurrent Query Documentation Clarification: PHYSICIAN'S DOCUMENTATION REQUEST Date of Query: 09/19/21 1058 Patient Name: João Walker Admit Date: 09/18/21 Dear Doctor, A review of the medical record indicates additional documentation may be needed. Please review below and update the documentation accordingly. Clinical Indicators: Risk Factors/Clinical Indicators/Treatments Chest pain, shortness of breath, palpitations HR 115 Cocaine and testosterone use EKG: new onset Atrial Fibrillation RVR Cardiology recommends digoxin and anticoagulant If possible, please provide further specificity regarding atrial fibrillation, such as: * Paroxysmal atrial fibrillation: terminates spontaneously or with intervention within 7 days of onset. * Persistent atrial fibrillation: episodes of continuous AF that last more than 7 days and do not self-terminate. * Long lasting persistent atrial fibrillation: episodes of continuous AF that last more than 12 months, * Chronic or Permanent atrial fibrillation: when a decision has been made to accept the presence of AF and there is no further attempt to restore or maintain sinus rhythm. * Other (please specify) * Unable to determine Use of terms such as suspected, likely, concern for, or probable (associated with a specific diagnosis that is being evaluated, monitored, or treated as if it exists) are acceptable and can be coded in the inpatient setting, when documented at the time of discharge. Thank you, Allegra Mcguire RN Extension: [phone] Please use your independent medical judgment in providing your response. THIS QUERY IS PART OF THE PERMANENT MEDICAL RECORD Provider Response: Other Other Diagnosis: Proxysmal A. Fib with RVR
--- NOTE | 2021-09-19 11:38 | MHC.CM.PN ---
Male 41 DX AFIB RVR independent lives w work up complete ECHO results are pending. He is discharged home today with assist from providing transportation.
[2021-09-19 11:54] VITALS: BP 113/70; PULSE 96
[2021-09-19] MEDS: carvediloL 3.125 MG TABLET PO (11:54)
--- NOTE | 2021-09-19 12:06 | PM.DS ---
DS: Providers Provider Date of Service: 09/19/21 <DENISSE Lozada - Last Filed: 09/19/21 12:15> Date of admission: 09/18/21 16:34 <DENISSE Lozada - Last Filed: 09/19/21 12:15> Date of discharge: 09/19/21 <DENISSE Lozada - Last Filed: 09/19/21 12:15> Primary care physician: None Physician <DENISSE Lozada - Last Filed: 09/19/21 12:15> Consults: 09/18/21 16:36 Consult to Cardiology Routine Consulting Provider: Lan Webb Reason for consultation: afib rvr Has provider been notified: No <DENISSE Lozada - Last Filed: 09/19/21 12:15> Attending physician on discharge: Yoni Kwok <DENISSE Lozada - Last Filed: 09/19/21 12:15> Discharging clinician: Gi Jeong <DENISSE Lozada - Last Filed: 09/19/21 12:15> DS: Diagnosis Discharge Diagnosis (1) Atrial fibrillation: Status: Acute <DENISSE Lozada - Last Filed: 09/19/21 12:15> (2) Non-ischemic cardiomyopathy: Status: Acute <DENISSE Lozada - Last Filed: 09/19/21 12:15> DS: Summary Hospital Course Hospital Course: From H&P on day of admission 41-year-old male presenting with? shortness of breath, palpitations, and chest pain which has been intermittent since 0300 with continued shortness of breath.? He uses cocaine frequently and admitted that he gets palpitations with use. He also uses testosterone for body building. He gets palpitations off and on and this has been happening for some time now.? He denied chest pain, nausea, vomiting. He was noted to have an elevated white blood cell count of 17.2.? Head CT and chest x-ray negative for any acute abnormality.? His blood pressure has remained stable.? In the ER, he was given therapeutic Lovenox and digoxin.? He will be admitted for further management and treatment of acute onset atrial fibrillation with rapid ventricular response Patient was admitted for new onset paroxysmal atrial fibrillation with rapid ventricular response. His tox screen was positive for cocaine and marijuana. He was started on anticoagulation with Lovenox which was converted to oral Eliquis. He was seen by the entry level chemist and his metoprolol was changed to Coreg. He then left the hospital against medical advice. The results of his echocardiogram are pending at this time. A prescription for Eliquis and Coreg will be sent to his pharmacy. Attending Attestation: Date of service is: 09/19/2021 Patient seen and examined on the day of discharge. Case has been discussed with the mid-level provider. I agree with the discharge summary and plan as documented above by the mid-level provider. <DENISSE Lozada Last Filed: 09/19/21 12:15> Time Spent with Patient Time attestation: Total time spent providing and/or coordinating discharge services: <DENISSE Lozada Last Filed: 09/19/21 12:15> Discharge coordination time: Greater than 30 minutes <DENISSE Lozada Last Filed: 09/19/21 12:15> Quality: Stroke Does the patient have a stroke diagnosis?: No <DENISSE Lozada Last Filed: 09/19/21 12:15> Physical Exam Vital Signs: Vital Signs: Last Vital Signs Temp 97.3 F 09/19/21 07:16 Pulse 96 09/19/21 11:54 Resp 20 09/19/21 07:16 BP 113/70 09/19/21 11:54 Pulse Ox 96 09/19/21 07:16 Body Mass Index 34.2 <DENISSE Lozada Last Filed: 09/19/21 12:15> Const: Nutritional Appearance: well nourished <DENISSE Lozada Last Filed: 09/19/21 12:15> Orientation/consciousness: patient oriented x3 <DENISSE Lozada Last Filed: 09/19/21 12:15> HENMT: Head: Yes normocephalic and Yes atraumatic <DENISSE Lozada Last Filed: 09/19/21 12:15> Eyes: Sclerae: sclerae normal <DENISSE Lozada Last Filed: 09/19/21 12:15> Resp: Effort & Inspection: normal respiratory effort and no respiratory distress <DENISSE Lozada - Last Filed: 09/19/21 12:15> Cardio: Rate: regular rate <DENISSE Lozada - Last Filed: 09/19/21 12:15> Rhythm: regular rhythm <DENISSE Lozada - Last Filed: 09/19/21 12:15> GI: Palpation (GI): Soft to palpation and nontender <DENISSE Lozada - Last Filed: 09/19/21 12:15> Neuro: General: patient oriented x3 <DENISSE Lozada - Last Filed: 09/19/21 12:15> Cranial nerves: Yes CN's II-XII intact bilaterally and Yes Bilaterally intact EOM present <DENISSE Lozada - Last Filed: 09/19/21 12:15> DS: Data Data Completed and Pending Labs on day of discharge: Laboratory Results - last 24 hr 09/18/21 09/18/21 09/18/21 13:10 13:10 13:10 WBC 17.2 H RBC 6.15 H Hgb 18.0 Hct 52.5 H MCV 85.4 MCH 29.3 MCHC 34.3 RDW 14.7 Plt Count 380 MPV 9.2 L Immature Gran % (Auto) 0.5 H Neut % (Auto) 79.2 H Lymph % (Auto) 9.3 L [place] % (Auto) 7.0 Eos % (Auto) 3.7 Baso % (Auto) 0.3 Lymph # (Auto) 1.6 [place] # (Auto) 1.2 Eos # (Auto) 0.6 H Baso # (Auto) 0.1 Abs Immat Gran (auto) 0.08 H Absolute Neuts (auto) 13.6 H Absolute Nucleated RBC 0.000 Nucleated RBC % (auto) 0.0 PT INR APTT Sodium 137 Potassium 4.4 Chloride 107 Carbon Dioxide 23 Anion Gap 11 L BUN 11 Creatinine 1.01 Estim Creat Clear Calc 124.4 Estimated GFR > 60 POC Glucose Random Glucose 155 H Calcium 8.8 Troponin I High Sens 13.2 B-Natriuretic Peptide 40 TSH 0.99 Urine Opiates Screen Urine Fentanyl Screen Ur Barbiturates Screen Ur Phencyclidine Scrn Ur Amphetamines Screen U Benzodiazepines Scrn Urine Cocaine Screen U Marijuana (THC) Screen COVID-19 ([facility]) COVID-[employer] 09/18/21 09/18/21 09/18/21 14:42 14:42 15:32 WBC RBC Hgb Hct MCV MCH MCHC RDW Plt Count MPV Immature Gran % (Auto) Neut % (Auto) Lymph % (Auto) [place] % (Auto) Eos % (Auto) Baso % (Auto) Lymph # (Auto) [place] # (Auto) Eos # (Auto) Baso # (Auto) Abs Immat Gran (auto) Absolute Neuts (auto) Absolute Nucleated RBC Nucleated RBC % (auto) PT 13.0 INR 1.1 APTT 35.2 Sodium Potassium Chloride Carbon Dioxide Anion Gap BUN Creatinine Estim Creat Clear Calc Estimated GFR POC Glucose Random Glucose Calcium Troponin I High Sens 13.9 B-Natriuretic Peptide TSH Urine Opiates Screen Urine Fentanyl Screen Ur Barbiturates Screen Ur Phencyclidine Scrn Ur Amphetamines Screen U Benzodiazepines Scrn Urine Cocaine Screen U Marijuana (THC) Screen COVID-19 ([facility]) Negative [employer] See Note 09/18/21 09/18/21 09/19/21 15:32 19:45 06:45 WBC Cancelled RBC Cancelled Hgb Cancelled Hct Cancelled MCV Cancelled MCH Cancelled MCHC Cancelled RDW Cancelled Plt Count Cancelled MPV Cancelled Immature Gran % (Auto) Neut % (Auto) Lymph % (Auto) [place] % (Auto) Eos % (Auto) Baso % (Auto) Lymph # (Auto) [place] # (Auto) Eos # (Auto) Baso # (Auto) Abs Immat Gran (auto) Absolute Neuts (auto) Absolute Nucleated RBC Cancelled Nucleated RBC % (auto) Cancelled PT INR APTT Sodium Potassium Chloride Carbon Dioxide Anion Gap BUN Creatinine Estim Creat Clear Calc Estimated GFR POC Glucose 101 Random Glucose Calcium Troponin I High Sens B-Natriuretic Peptide TSH Urine Opiates Screen Not Detected Urine Fentanyl Screen Not Detected Ur Barbiturates Screen Not Detected Ur Phencyclidine Scrn Not Detected Ur Amphetamines Screen Not Detected U Benzodiazepines Scrn Not Detected Urine Cocaine Screen POSITIVE H U Marijuana (THC) Screen POSITIVE H COVID-19 ([facility]) COVID-[employer] 09/19/21 09/19/2109/19/21 06:45 06:45 07:15 WBC 13.5 H RBC 6.07 H Hgb 18.0 Hct 51.7 MCV 85.2 MCH 29.7 MCHC 34.8 RDW 14.6 Plt Count 332 MPV 9.5 Immature Gran % (Auto) 0.5 H Neut % (Auto) 69.2 Lymph % (Auto) 14.9 L [place] % (Auto) 9.0 Eos % (Auto) 6.1 H Baso % (Auto) 0.3 Lymph # (Auto) 2.0 [place] # (Auto) 1.2 Eos # (Auto) 0.8 H Baso # (Auto) 0.0 Abs Immat Gran (auto) 0.07 H Absolute Neuts (auto) 9.3 H Absolute Nucleated RBC 0.000 Nucleated RBC % (auto) 0.0 PT INR APTT Sodium 138 Potassium 3.9 Chloride 107 Carbon Dioxide 24 Anion Gap 11 L BUN 7 L Creatinine 0.87 Estim Creat Clear Calc 144.5 Estimated GFR > 60 POC Glucose 102 Random Glucose 97 D Calcium 8.6 Troponin I High Sens B-Natriuretic Peptide TSH Urine Opiates Screen Urine Fentanyl Screen Ur Barbiturates Screen Ur Phencyclidine Scrn Ur Amphetamines Screen U Benzodiazepines Scrn Urine Cocaine Screen U Marijuana (THC) Screen COVID-19 ([facility]) COVID-19 Clin Com <DENISSE Lozada - Last Filed: 09/19/21 12:15> Discharge Plan Discharge Patient Disposition: Left Against Medical Advice <DENISSE Lozada - Last Filed: 09/19/21 12:15> Discharge Diagnosis: New onset atrial fibrillation <DENISSE Lozada - Last Filed: 09/19/21 12:15> New onset atrial fibrillation <Yoni Kwok MD - Last Filed: 09/19/21 16:24> Referrals: Lan Webb MD [Physician] - 1 Week Physician,None [Primary Care Provider] - 1 Week <DENISSE Lozada - Last Filed: 09/19/21 12:15> Discharge Medications: New Eliquis 5 mg tablet 5 mg PO BID 30 Days Qty: 60 RF: 0 carvedilol [Coreg] 3.125 mg tablet 3.125 mg PO BID 30 Days Qty: 60 RF: 0 Continued Entresto 24-26 mg tablet 1 tab PO BID Qty: 60 RF: 5 Trulicity 3 mg/0.5 mL pen injector 3 mg subcut QWEEK RF: 0 amlodipine 10 mg tablet 10 mg PO DAILY RF: 0 ibuprofen 800 mg tablet 800 mg PO Q8H PRN (Reason: pain) RF: 0 atorvastatin 20 mg tablet 20 mg PO DAILY RF: 0 Lantus Solostar U-100 Insulin 100 unit/mL (3 mL) insulin pen 10 unit subcut QPM RF: 0 metformin 500 mg tablet 1,000 mg PO DAILY RF: 0 Discontinued metoprolol succinate 25 mg tablet extended release 24 hr 25 mg PO DAILY RF: 0 <DENISSE Lozada - Last Filed: 09/19/21 12:15> Discharge Orders: Discharge Order (Routine); Ordered 09/19/21 Ordered By: Gi Jeong <DENISSE Lozada - Last Filed: 09/19/21 12:15> Care Plan Goals: see below <DENISSE Lozada - Last Filed: 09/19/21 12:15> Health Concerns: Atrial fibrillation Cocaine Use <DENISSE Lozada - Last Filed: 09/19/21 12:15> Plan of Treatment: start taking blood thinner Eliquis your metoprolol has been stopped and replaced with coreg. please take as prescribed. <DENISSE Lozada - Last Filed: 09/19/21 12:15> Assessment: left AMA <DENISSE Lozada - Last Filed: 09/19/21 12:15> Discharge Date/Time: 09/19/21 11:55 <DENISSE Lozada - Last Filed: 09/19/21 12:15>
--- NOTE | 2021-09-19 13:02 | PC.NURSE ---
Patient left AMA at approximately 11:55am. Patient said that he needed to leave by noon because that is when his ride could pick him up. Patient education regarding risks of leaving AMA provided. Gi Jeogn was notified. Patient is aware that his newly prescribed medications will be sent to his pharmacy. See [facility] for assessments.
--- NOTE | 2021-09-19 15:19 | CA_ITS ---
Transthoracic Echocardiogram Patient (Last, First, Middle): João Walker A Gender: Male Date of : 1980 Age: 41 Procedure Date: 09/19/2021 Procedure Type: Transthoracic Echocardiogram Location: [facility] Height: 180.34 cm Weight: 111.13 kg BSA: 2.30 m2 Heart Rate: bpm BP: 134 / 91 mmHg Conveyor Console Operator: YR/CP Referring MD: Aurelio Lr MD Symptoms: CHF SOB, CP Study Quality: Good Conclusions: - The left ventricular systolic function is moderate to severely decreased. The visually estimated ejection fraction is between 25-30%. - Normal right ventricular cavity size and systolic function. - There is mild dilatation of the sinuses of Valsalva measuring 4.40 cm and mild dilatation of the ascending aorta measuring 3.70 cm. Findings Left Ventricle Normal left ventricular cavity size. There is mildly increased left ventricular wall thickness. The left ventricular systolic function is moderate to severely decreased. The visually estimated ejection fraction is between 25-30%. There is moderate global hypokinesis. Abnormal diastolic function is noted. E/E prime ratio is between 8 and 15 consistent with indeterminate filling pressures. Right Ventricle Normal right ventricular cavity size and systolic function. Atria Both atria are normal in size. Aortic Valve Normal aortic valve structure and function. There is no aortic valve stenosis. There is no aortic valve regurgitation. Mitral Valve The mitral valve appears normal. There is trace mitral valve regurgitation. There is no mitral valve stenosis. Pulmonic Valve Normal pulmonic valve structure and function. There is trace pulmonic valve regurgitation. Tricuspid Valve Normal tricuspid valve structure and function. There is trace tricuspid valve regurgitation. Tricuspid regurgitation envelope is inadequate for calculation of right ventricular systolic pressure. Normal right atrial pressure. Great Vessels There is mild dilatation of the sinuses of Valsalva measuring 4.40 cm and mild dilatation of the ascending aorta measuring 3.70 cm. The visualized portions of the pulmonary artery and branches are normal. Venous The inferior vena cava is normal in size and collapses greater than 50% with inspiration. Pericardium/Pleural There is no evidence of pericardial effusion. Prior Study Comparison Changes noted compared to prior study dated: 02/12/2021. LVEF mildly worse 25-30%. Measurements 2D Linear Measurements IVSd: 1.37 0.6-0.9/0.6-1.0 cm LVIDd: 5.32 3.9-5.3/4.2-5.9 cm LVIDd Index: 2.31 2.4-3.2/2.2-3.1 cm/m2 LVIDs: 4.50 2.0-3.6 cm LVPWd: 1.28 0.7-1.1 cm Ao Root: 4.40 2.1-3.5 cm LA Diam: 3.80 2.7-3.8/3.0-4.0 cm LAIDs Index: 1.65 1.5-2.3 cm/m2 LV Mass: 369.92 67-162/88-224 g LV Mass Index: 160.84 43-95/49-115 g/m2 LVOT Diam: 2.70 3.0+(-)1.3 cm 2D Systolic Function EF 4C: 30.50 >55% EF 2C: 38.50 >55% EF BiP: 34.00 >55% Mitral Valve MV Pk E: 1.05 MV Decel Time: 111.00 E'Medial: 11.00 E/E' Med: 9.50 PHT: 33.00 MVA PHT: 6.67 Decel [place]: 9.46 Aortic Valve AoV Pk Ancelmo: 1.07 AoV Mn Ancelmo: 0.80 AoV VTI: 0.16 AoV Pk Grad: 5.00 Aov Mn Grad: 3.00 AMADEO Cont.VTI: 5.23 LVOT LVOT Pk Ancelmo: 0.81 LVOT Mn Ancelmo: 0.53 LVOT VTI: 0.15 LVOT Pk Grad: 3.00 LVOT Mn Grad: 1.00 LVOT Diam: 2.70 LVOT Area: 5.73 Diastolic Function MV Pk E: 1.05 E'Medial: 11.00 E/E' Med: 9.50 Right Ventricle TAPSE (mm): 1.70 TVS' Ancelmo: 9.93 Tricuspid Valve RA Press: 3.00 Great Vessels Aorta Ao Root-2D: 4.40 2.0-3.7 cm Sinus of Valsalva: 4.40 2.0-3.5 cm Ao Asc: 3.70 2.1-3.4 cm Ao Arch: 2.90 Updated in Other Vendor System with Status of Final Lan Webb MD electronically signed on 09/19/2021 12:56:32 PM with status of Final
== END 2021-09-19 11:55 | disposition left against medical advice (07) | DRG 201 ==
LOC: HO.ED 15:34 → HO.EDOVER 16:51 → HO.IMC 17:50
PROVIDERS: Admitting Provider Nurse Practitioner Acute Care; Emergency Provider Emergency Medicine Emergency Medical Services; Visit Provider Physician Assistant Medical
DX: I48.0 Paroxysmal atrial fibrillation (principal); I42.8 Other cardiomyopathies; E11.9 Type 2 diabetes mellitus without complications; I10 Essential (primary) hypertension; Z20.822 Contact with and (suspected) exposure to COVID-19; Z79.1 Long term (current) use of non-steroidal anti-inflammatories (NSAID); Z79.4 Long term (current) use of insulin; Z79.899 Other long term (current) drug therapy
CPT/HCPCS: 36415; 70450; 71045; 80048; 80307; 82947; 83880; 84443; 84484; 85025; 85610; 85730; 87635; 93005; 93306; 96372; 96374; 96376; 99285; J1160; J1650

== ENCOUNTER → 2022-01-09 12:28 | Outpatient (BNVA) | payer OTHER, SELFPAY | PROVIDERS: PCP Internal Medicine; Referring Provider Internal Medicine; Visit Provider Internal Medicine Cardiovascular Disease | DX: I42.8 Other cardiomyopathies (principal); I48.91 Unspecified atrial fibrillation; F14.90 Cocaine use, unspecified, uncomplicated; Z72.89 Other problems related to lifestyle; Z79.899 Other long term (current) drug therapy | CPT/HCPCS: 99212 ==

== ENCOUNTER → 2022-11-07 09:21 | Outpatient (BNVA) | payer OTHER, SELFPAY | PROVIDERS: PCP Internal Medicine; Visit Provider Internal Medicine Cardiovascular Disease | DX: I48.91 Unspecified atrial fibrillation (principal) | CPT/HCPCS: 93005 ==

== ENCOUNTER → 2022-11-28 07:21 | Outpatient (REF) | payer OTHER, SELFPAY ==
--- NOTE | 2022-11-28 07:24 | HM_ITS ---
Conclusion: 1. Patient was monitored for total period of 3 days 2. Baseline was normal sinus rhythm with average heart rate of 81 beats per minute 3. Total of 2935 PACs accounting for 1.1% total beats account for frequent PACs 4. No significant pauses or bradycardia noted 5. No patient reported symptoms MTDD
== END ==
LOC: HO.CARD 07:21
PROVIDERS: Visit Provider Internal Medicine Cardiovascular Disease
DX: I42.8 Other cardiomyopathies (principal); I48.91 Unspecified atrial fibrillation
CPT/HCPCS: 93242

== ENCOUNTER → 2022-12-22 08:12 | Outpatient (REF) | payer OTHER, SELFPAY ==
--- NOTE | 2022-12-22 08:15 | CA_ITS ---
Transthoracic Echocardiogram Patient (Last, First, Middle): João Walker A Gender: Male Date of : 1980 Age: 42 Procedure Date: 12/22/2022 Procedure Type: Transthoracic Echocardiogram Location: [facility] Height: 180.34 cm Weight: 97.52 kg BSA: 2.17 m2 Heart Rate: bpm BP: 128 / 70 mmHg Energy Conservation Technician: Referring MD: Lan Webb MD Sea Air Land Officer: Lan Webb MD Symptoms: I42.8 - Other cardiomyopathies Study Quality: Good ECG Rhythm: Sinus Conclusions: - Normal left ventricular cavity size. There is mildly increased left ventricular wall thickness. The left ventricular systolic function is mild to moderately decreased. The visually estimated ejection fraction is between 35-40%. - Normal right ventricular cavity size. There is borderline right ventricular systolic function. - There is mild dilatation of the ascending aorta measuring 4.00 cm. Findings Left Ventricle Normal left ventricular cavity size. There is mildly increased left ventricular wall thickness. The left ventricular systolic function is mild to moderately decreased. The visually estimated ejection fraction is between 35-40%. Abnormal diastolic function is noted. Spectral Doppler is indicative of a pseudonormal filling pattern. E/E prime ratio is between 8 and 15 consistent with indeterminate filling pressures. Right Ventricle Normal right ventricular cavity size. There is borderline right ventricular systolic function. Atria The left atrium is normal in size. The right atrium was not well visualized. Aortic Valve There is a normal trileaflet aortic valve. There is no aortic valve stenosis. There is no aortic valve regurgitation. Mitral Valve Normal mitral valve structure and function. There is no mitral valve regurgitation. There is no mitral valve stenosis. Pulmonic Valve Normal pulmonic valve structure and function. There is trace pulmonic valve regurgitation. Tricuspid Valve Normal tricuspid valve structure. There is no tricuspid valve regurgitation. Normal right atrial pressure. There is no evidence of pulmonary hypertension. Great Vessels There is mild dilatation of the ascending aorta measuring 4.00 cm. The visualized portions of the pulmonary artery and branches are normal. Venous The inferior vena cava is normal in size and collapses greater than 50% with inspiration. Pericardium/Pleural There is no evidence of pericardial effusion. Prior Study Comparison Changes noted compared to prior study dated: 09/19/2021. EF 35-40% (mild improvement) Measurements 2D Linear Measurements IVSd: 1.15 0.6-0.9/0.6-1.0 cm LVIDd: 5.24 3.9-5.3/4.2-5.9 cm LVIDd Index: 2.41 2.4-3.2/2.2-3.1 cm/m2 LVIDs: 3.56 2.0-3.6 cm LVPWd: 1.10 0.7-1.1 cm Ao Root: 4.20 2.1-3.5 cm LA Diam: 4.30 2.7-3.8/3.0-4.0 cm LAIDs Index: 1.98 1.5-2.3 cm/m2 LV Mass: 287.36 67-162/88-224 g LV Mass Index: 132.43 43-95/49-115 g/m2 LVOT Diam: 2.70 3.0+(-)1.3 cm 2D Systolic Function EF 4C: 41.70 >55% EF 2C: 37.70 >55% EF BiP: 36.60 >55% Mitral Valve MV Pk E: 0.71 MV PK A: 0.74 MV Decel Time: 123.00 E/A: 1.00 E'Lateral: 8.92 E'Medial: 5.77 E/E' Med: 12.30 E/E' Lat: 8.00 PHT: 36.00 MVA PHT: 6.11 Decel [place]: 5.76 Aortic Valve AoV Pk Ancelmo: 1.25 AoV Mn [place]: 0.87 AoV VTI: 0.23 AoV Pk Grad: 6.00 Aov Mn Grad: 4.00 AMADEO Cont.VTI: 4.38 LVOT LVOT Pk Ancelmo: 0.84 LVOT Mn [place]celmo: 0.49 LVOT VTI: 0.18 LVOT Pk Grad: 3.00 LVOT Mn Grad: 1.00 LVOT Diam: 2.70 LVOT Area: 5.73 Diastolic Function MV Pk E: 0.71 MV Pk A: 0.74 E/A: 1.00 E'Medial: 5.77 E/E' Med: 12.30 E' [place]: 8.92 E/E' Lat: 8.00 Right Ventricle TAPSE (mm): 22.00 TVS' [place]: 10.00 Tricuspid Valve TR Pk Ancelmo: 1.87 TR Pk Grad: 14.00 RA Press: 3.00 RVSP: 17.00 Great Vessels Aorta Ao Root-2D: 4.20 2.0-3.7 cm Ao Asc: 4.00 2.1-3.4 cm Pulmonary Valve PV Pk Ancelmo: 1.02 Peak PV Grad: 4.00 Updated in Other Vendor System with Status of Final Lan Webb MD electronically signed on 12/22/2022 1:06:30 PM with status of Final
== END ==
LOC: HO.CARD 08:12
PROVIDERS: Visit Provider Internal Medicine Cardiovascular Disease
DX: I42.8 Other cardiomyopathies (principal)
CPT/HCPCS: 93306

== ENCOUNTER → 2023-02-16 14:32 | Outpatient (BNVA) | payer OTHER, SELFPAY | PROVIDERS: PCP Internal Medicine; Referring Provider Internal Medicine; Visit Provider Internal Medicine Cardiovascular Disease | DX: I42.8 Other cardiomyopathies (principal); I48.91 Unspecified atrial fibrillation | CPT/HCPCS: 93005; 99212 ==

== ENCOUNTER 2023-08-17 10:42 | Outpatient (AMB) | payer OTHER, SELFPAY ==
--- NOTE | 2023-08-17 10:44 | MHC.OFFVIS ---
Intake Vital Signs 08/17/23 10:45 Height 5 ft 11 in Weight 224 lb 13.944 oz BMI 31.4 BP 110/70 Blood Pressure Location Lt brachial Position Sitting Pulse 90 Intake Visit Reasons: 6 MON FUP Intake Note: 6 month follow-up feeling good Surgical Scrub Technician Required: No Allergies diphenhydramine [From BENADRYL] Allergy (Unknown, Verified 02/16/23 14:35) UNKNOWN Medication List - Last Reconciled 08/17/23 by Lan Webb MD amlodipine 10 mg PO DAILY apixaban 5 mg PO BID 90 days carvedilol 3.125 mg PO BID 90 days insulin glargine (Lantus Solostar U-100 Insulin) 10 units subcut QPM metformin ER 1,000 mg PO BID sacubitril-valsartan 24-26 mg (Entresto) 1 tab PO BID 90 days HPI HPI Comments History of Present Illness Details 43-year-old gentleman with background nonischemic cardiomyopathy secondary to substance abuse. He is back for follow-up today. Recent echocardiography has shown ejection fraction 25-30%. He also had episode of atrial fibrillation and before that had TIA. He was using cocaine at that time. He was in the hospital where Eliquis was started and he was also started on carvedilol 3.125 mg twice a day as metoprolol was stopped. Today he returns for follow-up. He has been using cocaine once a month this stage. His echocardiography showed mild improvement ejection fraction 35-40%. Taking medications regularly otherwise. Occasionally feels palpitations. Occasionally also gets left-sided sharp stabbing sensation in the chest. This does not happen with exercise and activity usually happens at rest. 08/17/23: He returns for follow-up. Using cocaine over weekends but saying he has cut back significantly. He is denying and dyspnea and has nonanginal chest pain. No bleeding concerns. [facility], [facility] Medical History (Updated 01/09/22 @ 13:14 by Lan Webb MD) H/O: HTN (hypertension) Diabetes mellitus Non-ischemic cardiomyopathy Hypertension NICM (nonischemic cardiomyopathy) Surgical History History of cardiac cath History of hip surgery Family History Mother HIV (human immunodeficiency virus infection) Liver cirrhosis Father H/O heart artery stent Heart disease Social History (Updated 02/16/23 @ 14:38 by TAWANA Shelby) Household Members: Spouse and Children Housing: House Do you presently have visiting nurse or other home services: No Alcohol intake: current Alcohol intake frequency: holidays/special occasions only Patient Tobacco Use Status: Never used Tobacco Substance Use Type: Crack/Cocaine and Marijuana service: No Current occupational status: employed Review of Systems Const Denies chills, Denies fatigue, Denies fever(s), Denies frequent falls, Denies weakness, Denies weight gain and Denies weight loss ENT Denies dizziness Card Denies chest pain, Denies leg edema, Denies lightheadedness, Denies palpitations, Denies dyspnea, Denies dyspnea on exertion, Denies orthopnea and Denies other (loss of consciousness) Resp Denies cough, Denies dyspnea and Denies dyspnea on exertion GI Denies hematochezia and Denies change in stool character Musc Denies abnormal gait, Denies muscle weakness, Denies numbness, Denies radiating pain into limb and Denies tingling Neuro Denies abnormal gait, Denies dizziness, Denies frequent falls, Denies numbness, Denies tingling and Denies weakness Endo Denies fatigue and Denies palpitations Physical Exam Vital Signs: Last Vital Signs Pulse 90 08/17/23 10:45 BP 110/70 08/17/23 10:45 BMI result Body Mass Index 31.4 GENERAL APPEARANCE: in no acute distress, well developed, well nourished. NECK/THYROID: no carotid bruit, no jugular venous distention. SKIN: no suspicious lesions, warm and dry. HEART: no murmurs, regular rate and rhythm, S1, S2 normal. LUNGS: clear to auscultation bilaterally. ABDOMEN: normal, bowel sounds present, soft, nontender, nondistended. EXTREMITIES: no clubbing, cyanosis, or edema. PERIPHERAL PULSES: equal. NEUROLOGIC: nonfocal, alert and oriented. PSYCH: mood/affect full range. Assessment & Plan Assessment & Plan (1) NICM (nonischemic cardiomyopathy): Comment: Nonischemic cardiomyopathy secondary to substance abuse. Code(s): I42.8 - Other cardiomyopathies (2) Atrial fibrillation: Code(s): I48.91 - Unspecified atrial fibrillation Qualifiers: Atrial fibrillation type: unspecified Qualified Code(s): I48.91 - Unspecified atrial fibrillation Plan 43-year-old gentleman with nonischemic cardiomyopathy. This is due to substance abuse. We discussed previously about complete abstinence from cocaine. He has cut back and is using over weekends. There is some improvement in his ejection fraction also. Currently same medications should be continued. He needs to abstain completely from cocaine for his heart recovered. This has been discussed with him in every visit. On apixaban for atrial fibrillation and previous TIA. He will see us back in 6 months. Thank you for allowing me to participate in the care of your patient. Please feel free to contact me if you have any questions. Coding Level of Care Code Est Pt Level 4 (30174) Diagnoses NICM (nonischemic cardiomyopathy) I42.8 Atrial fibrillation I48.91 Atrial fibrillation type: unspecified
[2023-08-17 10:45] VITALS: BP 110/70; PULSE 90; BMI 31.4
== END 2023-08-17 11:25 | disposition home or self-care (01) ==
PROVIDERS: PCP Internal Medicine; Visit Provider Internal Medicine Cardiovascular Disease
DX: I42.8 Other cardiomyopathies (principal); I48.91 Unspecified atrial fibrillation
CPT/HCPCS: 99214

== ENCOUNTER → 2023-08-17 10:42 | Outpatient (BNVA) | payer OTHER, SELFPAY | PROVIDERS: PCP Internal Medicine; Visit Provider Internal Medicine Cardiovascular Disease | DX: I42.8 Other cardiomyopathies (principal); I48.91 Unspecified atrial fibrillation | CPT/HCPCS: 99212 ==

== ENCOUNTER 2024-04-27 10:38 | Outpatient (AMB) | payer OTHER, SELFPAY ==
[2024-04-27 10:42] VITALS: BP 120/70; PULSE 99; BMI 30.2
--- NOTE | 2024-04-27 10:42 | A.OFFVIS_ITS ---
Vital Signs 04/27/24 10:42 Height 5 ft 11 in Weight 216 lb 7.903 oz BMI 30.2 BP 120/70 Blood Pressure Location Lt brachial Position Sitting Pulse 99 Intake Visit Reasons: 6 mth f/up (rs) Intake Note: pt state that he is doing fine Air Intercept Controller Required: No Accompanied by: Self / Same As Patient Allergies diphenhydramine [From BENADRYL] Allergy (Unknown, Verified 02/16/23 14:35) UNKNOWN HPI Comments Details: 44-year-old gentleman with background nonischemic cardiomyopathy secondary to substance abuse. He is back for follow-up today. Recent echocardiography has shown ejection fraction 25-30%. He also had episode of atrial fibrillation and before that had TIA. He was using cocaine at that time. He was in the hospital where Eliquis was started and he was also started on carvedilol 3.125 mg twice a day as metoprolol was stopped. Today he returns for follow-up. He has been using cocaine once a month this stage. His echocardiography showed mild improvement ejection fraction 35-40%. Taking medications regularly otherwise. Occasionally feels palpitations. Occasionally also gets left-sided sharp stabbing sensation in the chest. This does not happen with exercise and activity usually happens at rest. 08/17/23: He returns for follow-up. Using cocaine over weekends but saying he has cut back significantly. He is denying and dyspnea and has nonanginal chest pain. No bleeding concerns. 04/27/24: He returns For follow-up. He had echocardiography in 12/12/2022 when EF was [id number] decreased to 40%. He had borderline RV dysfunction too. Mildly dilated ascending aorta at 4 cm was also noted. He is getting noncardiac chest pain he has sharp in character and worse with c oughing at times. He also had cellulitis episode in the left lower extremity which has improved with antibiotics. He had a cut in the skin which led to cellulitis. He continues to use cocaine on the weekends. He is saying he has not cut back compared to last visit in 08/12/2023. [facility] Medical History (Updated 01/09/22 @ 13:14 by Lan Webb MD) H/O: HTN (hypertension) Diabetes mellitus Non-ischemic cardiomyopathy Hypertension NICM (nonischemic cardiomyopathy) Surgical History History of hip surgery History of cardiac cath Family History Mother HIV (human immunodeficiency virus infection) Liver cirrhosis Father H/O heart artery stent Heart disease Social History Household Members: Spouse and Children Housing: House Do you presently have visiting nurse or other home services: No Alcohol intake: current Alcohol intake frequency: holidays/special occasions only Patient Tobacco Use Status: Never used Tobacco Substance Use Type: Crack/Cocaine and Marijuana service: No Current occupational status: employed Review of Systems Const Denies chills, Denies fatigue, Denies fever(s), Denies frequent falls, Denies weakness, Denies weight gain and Denies weight loss ENT Denies dizziness Card Denies chest pain, Denies leg edema, Denies lightheadedness, Denies palpitations, Denies dyspnea and Denies dyspnea on exertion Resp Denies cough, Denies dyspnea and Denies dyspnea on exertion GI Denies hematochezia Musc Denies abnormal gait, Denies muscle weakness, Denies numbness, Denies radiating pain into limb and Denies tingling Neuro Denies abnormal gait, Denies dizziness, Denies frequent falls, Denies numbness, Denies tingling and Denies weakness Endo Denies fatigue and Denies palpitations Physical Exam Vital Signs: BMI result Body Mass Index 30.2 GENERAL APPEARANCE: in no acute distress, well developed. NECK/THYROID: no carotid bruit, no jugular venous distention. SKIN: no suspicious lesions, warm and dry. HEART: no murmurs, regular rate and rhythm, S1, S2 normal. LUNGS: clear to auscultation bilaterally. ABDOMEN: normal, bowel sounds present, soft, nontender, nondistended. EXTREMITIES: no clubbing, cyanosis, or edema. PERIPHERAL PULSES: equal. NEUROLOGIC: nonfocal, alert and oriented. PSYCH: mood/affect full range. Office Procedures EKG Details: Sinus rhythm 89 beats per minute, normal axis, ventricular hypertrophy, poor R-wave progression, QTC 436 milliseconds. [id number], Complete Assessment & Plan Assessment & Plan (1) Atrial fibrillation: Code(s): I48.91 - Unspecified atrial fibrillation Category: Medical Qualifiers: Atrial fibrillation type: unspecified Qualified Code(s): I48.91 - Unspecified atrial fibrillation (2) NICM (nonischemic cardiomyopathy): Comment: Nonischemic cardiomyopathy secondary to substance abuse. Code(s): I42.8 - Other cardiomyopathies Category: Medical Plan 44-year-old gentleman presenting for follow-up. He has background of nonischemic cardiomyopathy with EF of 35-40%. He previously had severe cardiomyopathy but had some improvement after cutting back on cocaine use. He continues to use cocaine on the weekends. I have explained to him that his cardiomyopathy is linked with substance use and he has to abstain completely for heart rate recover. Has been more than 1-1/2 years since we last assessed his heart. I have discussed with him about doing a repeat echocardiogram and he is agreeable. Blood pressure is well controlled. He is taking medications otherwise. he will see us back in 5 months. Thank you for allowing me to participate in the care of your patient. Please feel free to contact me if you have any questions. Orders: Orders CA echo transthoracic complete Today I42.8 - Other cardiomyopathies Coding Level of Care Code Est Pt Level 4 (79195) Diagnoses Atrial fibrillation I48.91 Atrial fibrillation type: unspecified NICM (nonischemic cardiomyopathy) I42.8 CPT Codes EKG - CPT: 13390-[id number], Complete ([id number])
== END 2024-04-27 11:03 | disposition home or self-care (01) ==
PROVIDERS: PCP Internal Medicine; Visit Provider Internal Medicine Cardiovascular Disease
DX: I48.91 Unspecified atrial fibrillation (principal); I42.8 Other cardiomyopathies
CPT/HCPCS: 93010; 99214

== ENCOUNTER → 2024-04-27 10:38 | Outpatient (BNVA) | payer OTHER, SELFPAY | PROVIDERS: PCP Internal Medicine; Visit Provider Internal Medicine Cardiovascular Disease | DX: I42.7 Cardiomyopathy due to drug and external agent (principal); I48.91 Unspecified atrial fibrillation; I10 Essential (primary) hypertension; F14.20 Cocaine dependence, uncomplicated; Z86.73 Personal history of transient ischemic attack (TIA), and cerebral infarction without residual deficits | CPT/HCPCS: 93005; 99212 ==